=== PATIENT | female | born 1950 | race Caucasian/White ===

== ENCOUNTER 2016-08-31 16:51 | Emergency (ER) | payer MEDICARE ==
[2016-08-31 17:39] LABS: BASOPHILS 0.3 % (0-2); EOSINOPHILS 2.1 % (0-7); HEMATOCRIT 40.4 % (36.0-48.0); HEMOGLOBIN 13.5 g/dL (12-16); IMMATURE GRANULOCYTES 0.2 % (0-5); LYMPHOCYTES 22.4 % (15-50); MCHC 33.4 g/dL (31.0-37.0); MCV 92.9 fL (80.0-100.0); MEAN PLATELET VOLUME 9.4 fL (7.4-10.4); MONOCYTES 7.2 % (2-11); NEUTROPHILS 67.8 % (40-80); PLATELET COUNT 229 10x3/uL (130-400); RBC 4.35 10x6/uL (4.00-5.40); RDW 15.6 % (11.5-14.5); WBC 6.1 10x3/uL (4.8-10.8)
[2016-08-31 17:46] LABS: ALBUMIN 3.5 g/dL (3.4-5.0); ALKALINE PHOSPHATASE 70 U/L (46-116); ALT (SGPT) 16 U/L (10-68); CALC OSMOLALITY 287 mosm/kg (275-300); CALCIUM 8.4 mg/dL (8.5-10.1); CARBON DIOXIDE 28.3 mmol/L (21.0-32.0); CHLORIDE - SERUM 107 mmol/L (98-107); CREATININE - SERUM 0.7 mg/dL (0.6-1.3); GLUCOSE 94 mg/dL (74-106); POTASSIUM - SERUM 3.4 mmol/L (3.5-5.1); SODIUM 144 mmol/L (136-145); UREA NITROGEN 16 mg/dL (7-18); eGFR NON AFRICAN AMERICAN 89 mL/min (90-120)
[2016-08-31 17:49] LABS: UDS - AMPHET NEGATIVE QUAL (NEGATIVE); UDS - BARB NEGATIVE QUAL (NEGATIVE); UDS - BENZO NEGATIVE QUAL (NEGATIVE); UDS - COCAINE NEGATIVE QUAL (NEGATIVE); UDS - METH NEGATIVE QUAL (NEGATIVE); UDS - OPIATE NEGATIVE QUAL (NEGATIVE); UDS - PCP NEGATIVE QUAL (NEGATIVE); UDS - THC NEGATIVE QUAL (NEGATIVE)
[2016-08-31 18:09] LABS: APPEARANCE CLEAR (CLEAR); BILIRUBIN NEGATIVE (NEGATIVE); COLOR YELLOW (YELLOW); GLUCOSE NEGATIVE (NEGATIVE); KETONE NEGATIVE (NEGATIVE); LEUKOCYTE ESTERASE TRACE (NEGATIVE); NITRITE NEGATIVE (NEGATIVE); PROTEIN NEGATIVE (NEGATIVE); SPECIFIC GRAVITY 1.015 (1.005-1.020); UROBILINOGEN NORMAL (NORMAL)
[2016-08-31 18:11] LABS: BACTERIA FEW /hpf (NONE SEEN); EPITHELIAL CELLS OCC /hpf (0-5); RED CELLS - URINE 0-5 /hpf (0-5); WHITE CELLS - URINE 0-5 /hpf (0-5)
== END 2016-08-31 18:05 | disposition home or self-care (01) ==
LOC: D.ER 16:51
PROVIDERS: Physician Assistant Medical
DX: F43.21 Adjustment disorder with depressed mood (principal); R53.1 Weakness; F41.8 Other specified anxiety disorders; F17.200 Nicotine dependence, unspecified, uncomplicated

== ENCOUNTER 2016-10-05 18:08 | Inpatient (IN) | payer MEDICARE ==
[~2016-10-05] VITALS: Ht 152.4 cm; Wt 61.1 kg
[2016-10-05 20:18] VITALS: BP 187/89
[2016-10-05] MEDS ORDERED: LEVOTHYROXINE175 MCG PO (20:53)
[2016-10-05] MEDS ORDERED: KLONOPIN0.5 MG PO (20:53)
[2016-10-05] MEDS ORDERED: LISINOPRIL5 MG PO (20:56)
[2016-10-05] MEDS ORDERED: CELEXA10 MG PO (20:58)
--- NOTE | 2016-10-05 23:35 | NUR ---
Patient arrived via ambulance at 18;25 from [facility] ER, alert and oriented, admited for suicidal ideation, plan to take over dose of herion. Code status is full code, medications entered into system, physician aware, patient contracts for safety, oriented to unit, will continue to monitor.
[2016-10-06 00:36] VITALS: BP 190/98; BMI 21.0
[2016-10-06 06:41] LABS: BASOPHILS 0.2 % (0-2); EOSINOPHILS 2.9 % (0-7); HEMATOCRIT 41.2 % (36.0-48.0); HEMOGLOBIN 13.9 g/dL (12-16); IMMATURE GRANULOCYTES 0.2 % (0-5); LYMPHOCYTES 26.5 % (15-50); MCH 31.2 pg (26.0-34.0); MCHC 33.7 g/dL (31.0-37.0); MCV 92.6 fL (80.0-100.0); MEAN PLATELET VOLUME 9.1 fL (7.4-10.4); MONOCYTES 8.2 % (2-11); PLATELET COUNT 222 10x3/uL (130-400); RBC 4.45 10x6/uL (4.00-5.40); RDW 15.4 % (11.5-14.5); WBC 5.6 10x3/uL (4.8-10.8)
[2016-10-06 07:20] LABS: ALBUMIN 3.3 g/dL (3.4-5.0); ALKALINE PHOSPHATASE 54 U/L (46-116); ALT (SGPT) 16 U/L (10-68); BILIRUBIN - TOTAL 0.34 mg/dL (0.2-1.3); CALCIUM 9.1 mg/dL (8.5-10.1); CARBON DIOXIDE 32.3 mmol/L (21.0-32.0); CHLORIDE - SERUM 104 mmol/L (98-107); CHOLESTEROL, TOTAL 238 mg/dL (0-200); CREATININE - SERUM 0.7 mg/dL (0.6-1.3); HDL CHOLESTEROL 60 mg/dL (32-96); LDL CHOLESTEROL 159 mg/dL (0-100); LDL-HDL RATIO 2.7 ratio (1.5-3.5); POTASSIUM - SERUM 3.4 mmol/L (3.5-5.1); PROTEIN - SERUM 7.1 g/dL (6.4-8.2); SODIUM 143 mmol/L (136-145); THYROID STIMULATING HORMONE 19.76 uIU/mL (0.36-3.74); TRIGLYCERIDE 96 mg/dL (30-200); UREA NITROGEN 12 mg/dL (7-18); eGFR NON AFRICAN AMERICAN 88 mL/min (90-120)
[2016-10-06 07:21] LABS: CALC OSMOLALITY 282 mosm/kg (275-300); GLUCOSE 55 mg/dL (74-106)
[2016-10-06 08:00] VITALS: BP 141/82
--- NOTE | 2016-10-06 12:56 | NUR ---
B) PATIENT IS AWAKE AND ALERT, SHE IS ORIENTED X3, SHE AMBULATES INDEPENDENTLY, SHE HAS NOT MADE ANY S.I. TODAY, BUT SHE HAS SAID SHE HAS A LOT OF THINGS THAT ARE CAUSING HER TO BE DEPRESSED. I) PROVIDE PRESCRIBED MEDS. R) PATIENT IS COMPLIANT WITH MEDS AND UNIT MILIEU. P) CONTINUE POC.
[2016-10-06 14:05] VITALS: BMI 20.9
[2016-10-06 19:45] VITALS: BP 108/57
--- NOTE | 2016-10-07 03:25 | NUR ---
B) patient alert and oriented X 3, quiet and keeps to herself, watching TV, I) Administered scheduled medication, contracted for safety, R) Medication compliant, no S.I. this shift, P) Continue plan of care.
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
[2016-10-07 07:25] LABS: RAPID PLASMA REAGIN Non Reactive (Non Reactive)
[2016-10-07 08:18] LABS: FOLATE (FOLIC ACID) - SERUM 16.9 ng/mL (>3.0)
[2016-10-07 08:35] VITALS: BP 143/100
--- NOTE | 2016-10-07 10:37 | NUR ---
B) PATIENT IS AWAKE AND ALERT, SHE HAS NOT MENTIONED ANYTHING TODAY ABOUT LEAVING AND SHE SAYS SHE FEELS BETTER TODAY, BUT REALIZES SHE BETTER GET UP AND WALK AROUND MORE. SHE IS ORIENTED X3, SHE HAS NOT MADE ANY MENTION OF S.I. SHE IS SMILING AND JOKING WITH STAFF AND PEERS. PATIENT AMBULATES INDEPENDENTLY. I) PROVIDE PRESCRIBED MEDS. R) PATIENT IS COMPLIANT WITH MEDS, IVONNE BP IS ELEVATED TODAY. P) CONTINUE POC.
[2016-10-07 20:03] VITALS: BP 105/69
--- NOTE | 2016-10-08 01:49 | NUR ---
B) Patient alert and oriented, calm and cooperative with assessment and care, social with staff and peers, no S.I. I) administered scheduled medications, monitored for safety, contracted for safety R) Medication compliant, pleasant and friendly to staff and peers P) Continue Plan of care.
[2016-10-08 15:57] VITALS: BP 153/84
--- NOTE | 2016-10-08 18:19 | NUR ---
PT IS RECEIVED SITTING IN CHAIR NEAR NURSE STATION. PT IS ALERT AND ORIENTED X3. PT DENIES PAIN. PT DENIES SI AND CONTRACTS FOR SAFETY. PT ADMITS TO ANXIETY 4/10 DENIES DEPRESSION. PT IS PLEASANT AND SOCIAL WITH STAFF AND PEERS. PT IS COOPERATIVE WITH STAFF AND IS COMPLIANT WITH MED'S AND CARE. NO AGGRESSION NOTED. NO HALLUCINATIONS OR DELUSIONS ARE NOTED OR REPORTED. PT IS VERY HELPFUL AND FRIENDLY WITH OTHER PT'S. WILL CONTINUE TO MONITOR AND CONTINUE WITH PLAN OF CARE.
[2016-10-08 19:30] VITALS: BP 129/65
--- NOTE | 2016-10-08 20:20 | PN ---
PATIENT:JAYME DELAROSA MEDICAL RECORD: [id number] LOCATION:[facility] ADMISSION DATE: 10/05/16 PROGRESS NOTE DATE OF SERVICE: 10/07/2016 SUBJECTIVE: No new complaint noted. OBJECTIVE: The patient will be seen by Dr. Jeffers today. She is somewhat sleepy. Reports that she does not tolerate the Klonopin very well. On exam, mood is euthymic. Affect is, however, somewhat expansive. Speech is slightly pressured and tangential. Content of thought exhibits some paranoid ideation. Sensorium testing reveals a very poor concentration. ASSESSMENT: No change in diagnosis. PLAN: 1. Neuropsychological testing. 2. We will reduce dose of Klonopin. 3. Continue other meds and supportive therapy. TRANSINT:[id number] Voice Confirmation ID: [id number] DOCUMENT ID: [id number] PAUL MOSLEY III, MD at 2020 CC: [id number] DICTATION DATE: 10/07/16 1139 PLATEN PRESS FEEDER: 10/07/16 1858 ADM IN [place] [id number] [place] [address]
--- NOTE | 2016-10-09 03:36 | NUR ---
B) Patient ie alert and oriented, calm and helpful with other patients, social and friendly with staff and peers, I) Administered scheduled medications, contracted for safety , monitored for behaviors, R) Medication compliant, no S.I. this shift, P) Continue plan of care.
[2016-10-09 07:00] VITALS: BP 147/92
--- NOTE | 2016-10-09 14:17 | NUR ---
IS ORIENTED X 3.COMPLIANT WITH MEDS AND STAFF.ATTEMPTS TO HELP OTHER PATIENTS AT MEAL.SLEEPS MOST OF THE DAY EXCEPT WAKES FOR MEALS.DENIED PLAN OR THOUGHTS ABOUT KILLING SELF NOW.STATES "I JUST NEEDED TO GET SOME SLEEP".VOICES PLAN TO SELL HOME AND MOVE INTO A CONDO WHERE SHE WILL FEEL SAFER.WILL CONTINUE WITH PLAN OF CARE,MONITOR FOR SAFETY AND CHANGES.
[2016-10-09 19:31] VITALS: BP 156/75
--- NOTE | 2016-10-09 20:26 | NUR ---
RECEIVED IN DAYROOM. SITTING IN A RECLINER READING A BOOK. CALM AND COOPERATIVE WITH CARE AND ASSESSMENTS. DENIES THOUGHTS OF SELF HARM. ENCOURAGE TO EXPRESS NEEDS. CONTINUES TO SIT QUIETLY IN CHAIR. CONTINUE PLAN OF CARE
[2016-10-10 07:00] VITALS: BP 128/84
[2016-10-10 09:21] VITALS: BMI 21.0
--- NOTE | 2016-10-10 09:52 | PN ---
PATIENT:JAYME DELAROSA MEDICAL RECORD: [id number] LOCATION:[facility] ADMISSION DATE: 10/05/16 PROGRESS NOTE DATE OF SERVICE: 10/09/2016 SUBJECTIVE: No new complaint. OBJECTIVE: The patient continues to show some pressured speech. She exhibits moderate degree of confusion as well, on occasion require some redirection. On exam, mood is somewhat elevated. Affect is slightly expansive. Speech is highly circumstantial. Content of thought is negative for clear cut psychosis, although the patient does exhibit a fair degree of paranoid ideation. Sensorium shows no change. ASSESSMENT: No change in diagnosis. PLAN: 1. Continue current medications. 2. Continue supportive therapy. TRANSINT:[id number] Voice Confirmation ID: [id number] DOCUMENT ID: [id number] PAUL MOSLEY III, MD at 0952 CC: [id number] DICTATION DATE: 10/09/16 0619 INFORMATION TECHNOLOGY ASSISTANT: 10/09/16 0851 ADM IN [place] [id number] [place] [address]
--- NOTE | 2016-10-10 14:00 | NUR ---
AWAKE AND ORIENTED X 3. CALM AND COOPERATIVE WITH CARE AND ASSESSMENT. DENIES ANY SELF-HARM. SOCIAL WITH PEERS AND STAFF. TRIES TO HELP OTHERS. COMPLIANT WITH MEDICATIONS AND UNIT MILIEU. SAFETY PRECAUTIONS MAINTAINED. WILL CONTINUE PLAN OF CARE.
--- NOTE | 2016-10-10 19:44 | NUR ---
RECEIVED IN HALLWAY. COMING FROM DAYROOM TO BEDROOM. CALM AND COOPERATIVE WITH CARE AND ASSESSMENTS. DENIES THOUGHT OF SELF HARM. RESTING IN BED EYES OPEN AT THIS TIME. CONTINUE PLAN OF CARE
[2016-10-10 19:55] VITALS: BP 163/82
[2016-10-11 09:39] VITALS: BP 152/80
--- NOTE | 2016-10-11 11:09 | PN ---
PATIENT:JAYME DELAROSA MEDICAL RECORD: [id number] LOCATION:PAT [facility]112 ADMISSION DATE: 10/05/16 PROGRESS NOTE DATE OF SERVICE: 10/10/2016 SUBJECTIVE: The patient complains of continuing to be sleepy during the day. OBJECTIVE: The patient is pleasant on exam, mood is euthymic. Affect is rather shallow. Speech tends to be repetitive. Content of thought is negative for clear cut psychosis at the moment. Sensorium shows mild concentration and short term difficulties. ASSESSMENT: No change in diagnosis. PLAN: 1. Discontinue Klonopin. 2. Continue other medications. 3. Continue supportive therapy. TRANSINT:[id number] Voice Confirmation ID: [id number] DOCUMENT ID: [id number] PAUL MOSLEY III, MD at 1109 CC: [id number] DICTATION DATE: 10/10/16 1145 CUSTOMER EXPERIENCE PROFESSIONAL: 10/10/16 1723 ADM IN [place] [id number] [place] [id number]
--- NOTE | 2016-10-11 15:07 | NUR ---
PATIENT IS ALERT AND ORIENTED X 3. DENIES ANY NEEDS OR SI. SOCIAL WITH PEERS AND STAFF. PRESCRIBED MEDS ADMINISTERED. COMPLIANT WITH MEDS AND UNIT MILIEU. MAIONTAIN SAFETY PRECAUTIONS. CONTINUE PLAN OF CARE.
[2016-10-11 19:56] VITALS: BP 174/81
--- NOTE | 2016-10-11 19:57 | NUR ---
RECEIVED IN HALLWAY. SITTING WITH PEERS SOCIALIZING. CALM AND COOPERATIVE WITH CARE AND ASSESSMENTS. DENIES THOUGHTS OF SELF HARM. ENCOURAGE TO EXPRESS NEEDS. CONTINUES TO SOCIALIZE WITH PEERS. CONTINUE PLAN OF CARE
[2016-10-12 08:00] VITALS: BP 144/79
--- NOTE | 2016-10-12 09:00 | NUR ---
B) Received pt in dining room for b'fast, alert, oriented, jovial mood, appetite good. I) Meds admin per orders. Group therapy provided. R) Lori meds well, participated in group as requested, cooperative. P) Cont plan of care including meds and group activity.
--- NOTE | 2016-10-12 10:47 | NUR ---
Nutrition Follow Up: Chart reviewed. Pt is eating 75% meal avg on a regular diet. +BM 10/08/16. Meds and labs reviewed. Rec continue current diet. Pt continues at low nutritional risk. RD following.
--- NOTE | 2016-10-12 10:59 | PN ---
PATIENT:JAYME DELAROSA MEDICAL RECORD: [id number] LOCATION:[facility]112 ADMISSION DATE: 10/05/16 PROGRESS NOTE DATE OF SERVICE: 10/11/2016 SUBJECTIVE: No new complaint. OBJECTIVE: The patient remains somewhat disorganized in her speech. Mood is generally pleasant. Affect is somewhat shallow. Content of thought is negative for overt psychosis. Sensorium shows no change. ASSESSMENT: No change in diagnosis. PLAN: 1. Case management is working on placement at the moment. 2. We will continue all current medications. 3. Continue supportive therapy. TRANSINT:[id number] Voice Confirmation ID: [id number] DOCUMENT ID: [id number] PAUL MOSLEY III, MD at 1059 CC: [id number] DICTATION DATE: 10/11/16 1153 POLICY WRITER SALES: 10/11/16 1837 ADM IN [place] [id number] [place] [address]
[2016-10-12 19:47] VITALS: BP 135/77
--- NOTE | 2016-10-13 05:00 | NUR ---
B) Patient alert and oriented, pleasant and social with staff and peers, worried about her home and discharge plans I) Administered scheduled medications, redirected as needed, R) Medication compliant, friendly and helpful with peers, P) Continue plan of care.
[2016-10-13 10:00] VITALS: BP 118/76
--- NOTE | 2016-10-13 12:36 | NUR ---
B) PATIENT IS AWAKE AND ALERT, SHE AMBULATES INDEPENDENTLY, SHE IS ORIENTED X3, SHE HAS MADE SOME FAR OUT STATEMENTS ABOUT PEOPLE BREAKING INTO HER HOME AND HAVING SQUATTERS TRYING TO MOVE IN ON HER. PATIENT IS INTERACTING WITH STAFF AND PEERS, SHE IS JOKING AND HAVING A GOOD TIME IN GROUPS, SHE DENIES DEPRESSION AND S.I. I) PROVIDE PRESCRIBED MEDS. R) PATIENT IS COMPLIANT WITH MEDS AND UNIT MILIEU. P) CONTINUE POC.
--- NOTE | 2016-10-13 15:25 | NUR ---
PATIENT DID TAKE HER LITHIUM, BUT SHE IS NOT HAPPY, SHE SAYS "I CAN'T TAKE MEDICINE FOR BIPOLAR, A ONCE TOLD ME I WAS VERY SENSITIVE TO MEDS BECAUSE OF MY THYROID, HE ALSO SAID I COULD NEVER TAKE STREET DRUGS" SHE IS TEARFUL AND UPSET ABOUT THE NEW MEDS.
--- NOTE | 2016-10-14 02:59 | NUR ---
B) Patient is alert and oriented X 3, social and friendly to staff and peers, helpful, does not like taking depression medication, denies S.I., contracts for safety, I) Administered scheduled medications, monitored for safety. R) Medication compliant, worried about discharge planning, P) Continue plan of care.
--- NOTE | 2016-10-14 08:07 | NUR ---
B) PATIENT IS AWAKE AND ALERT, SHE IS AMBULATING INDEPENDENTLY. SHE IS CALM AND PLEASANT SHE HAS NOT MADE ANY STATEMENTS ABOUT PARANOIA OR DELUSIONS THIS AM. I) PROVIDE PRESCRIBED MEDS. R) PATIENT IS ORIENTED X3. SHE IS CONCERNED WITH THE LITHIUM, DID PROVIDE HER INFORMATION FROM THE PHARMACY ABOUT IT. P) CONTINUE POC.
[2016-10-14 08:45] VITALS: BP 146/86
--- NOTE | 2016-10-14 12:46 | PN ---
PATIENT:JAYME DELAROSA MEDICAL RECORD: [id number] LOCATION:[facility] ADMISSION DATE: 10/05/16 PROGRESS NOTE DATE OF SERVICE: 10/13/2016 SUBJECTIVE: The patient's case was discussed with staff. She has no new complaint. OBJECTIVE: The patient is delusional and very disorganized. She says that people are breaking into her house and that no one cares. She denies that she would seek to harm herself or others, but clearly is hypervigilant and paranoid. ASSESSMENT: No change in diagnoses. PLAN: The patient in my view has a mood component to her disorder and I am going to start her on lithium at a dose of 300 mg twice daily. Her long-term prognosis is guarded. TRANSINT:[id number] Voice Confirmation ID: [id number] DOCUMENT ID: [id number] AKI ODOM MD at 1246 CC: [id number] DICTATION DATE: 10/13/16 1303 CORN CHIP MAKER: 10/13/16 1848 ADM IN [facility] [address] [place] [address]
[2016-10-14 19:30] VITALS: BP 138/72
--- NOTE | 2016-10-15 03:10 | NUR ---
B) Patient alert and oriented X 3 , calm and cooperative, helpful with peers, social with staff and peers, I) Administered scheduled medications, contracted for safety, R) Medication compliant, friendly and pleasant, P) Continue plan of care.
[2016-10-15 08:42] VITALS: BP 174/85
--- NOTE | 2016-10-15 09:50 | PN ---
PATIENT:JAYME DELAROSA MEDICAL RECORD: [id number] LOCATION:PAT [facility]112 ADMISSION DATE: 10/05/16 PROGRESS NOTE DATE OF SERVICE: 10/14/2016 SUBJECTIVE: The patient's case was discussed with staff. She has no new complaint. OBJECTIVE: The patient denies intent to harm herself or others. She generally tolerates her medicines well. She has been started on lithium and does seem a little calmer today. ASSESSMENT: No change in diagnoses. PLAN: Supportive and educational interventions were made. The patient's long-term prognosis is guarded. TRANSINT:[id number] Voice Confirmation ID: [id number] DOCUMENT ID: [id number] AKI ODOM MD at 0950 CC: [id number] DICTATION DATE: 10/14/16 1317 ASBESTOS CEMENT SHEET SUPERVISOR: 10/14/16 1628 ADM IN [facility] [address] [place] [address]
--- NOTE | 2016-10-15 11:28 | NUR ---
B) PATIENT IS GOING AROUND HELPING EVERYONE AND TRYING TO FIX EVERYTHING AND MAKE THE PATIENTS HAPPY. SHE IS TALKING WITH ANOTHER FEMALE PATIENT AND SHE IS GOING INTO DETAIL ABOUT PEOPLE BREAKING IN ON HER. MAY NEED TO SEPARATE THE TWO IF THEY BEGIN TALKING NEGATIVELY. WILL MONITOR. PATIENT IS VERY INDEPENDENT, AMBULATES WELL. I) PROVIDE PRESCRIBED MEDS AND UNIT MILIEU. R) PATIENT IS COMPLIANT WITH HER MEDS, DID HEAR HER TALKING TO THE FIELD COUNSEL ABOUT HOW A DRBridger YEARS AGO TRIED HER ON BIPOLAR MEDICINE. SHE SAID "YOU KNOW BACK THEN THEY WERE TRYING TO SAY EVERYONE WAS BIPOLAR" SHE DID TELL THE FIELD COUNSEL THAT SHE WAS NOT ABLE TO TAKE THE DEPAKOTE PRESCRIBED IN THE PAST, HOW IT MADE HER VERY ILL. P) CONTINUE POC.
[2016-10-15 19:30] VITALS: BP 177/77
--- NOTE | 2016-10-16 05:05 | NUR ---
B] PATIENT ALERT AND ORIENTED, SOCIAL WITH STAFF AND PEERS, NO S.I. THIS SHIFT, CALM AND COOPERATIVE, I] ADMINISTERED SCHEDULED MEDICATIONS, MONITORED FOR SAFETY, R] MEDICATION COMPLIANT, FRIENDLY AND PLEASANT, P] CONTINUE PLAN OF CARE.
[2016-10-16 07:00] VITALS: BP 172/78
[2016-10-16 08:00] VITALS: Ht 152.4 cm; Wt 61.1 kg
--- NOTE | 2016-10-16 12:48 | PN ---
PATIENT:JAYME DELAROSA MEDICAL RECORD: [id number] LOCATION:[facility] ADMISSION DATE: 10/05/16 PROGRESS NOTE DATE OF SERVICE: 10/15/2016 SUBJECTIVE: The patient's case was discussed with staff. She has no new complaint. OBJECTIVE: The patient has a depressed mood, but no thoughts of harming herself or others. She does tolerate her medications well. Eye contact is poor. Concentration is poor. ASSESSMENT: No change in diagnoses. PLAN: Current medicines and therapies have been reviewed and will be maintained. I am going to order a lithium level on her. I do not anticipate it would be above therapeutic range and I am certainly pleased that it seems to have shown some clinical benefit. Her long-term prognosis is guarded. TRANSINT:[id number] Voice Confirmation ID: [id number] DOCUMENT ID: [id number] AKI ODOM MD at 1248 CC: [id number] DICTATION DATE: 10/15/16 1008 DRUMS TEACHER: 10/15/16 1408 ADM IN [place] [id number] [place] [address]
--- NOTE | 2016-10-16 17:22 | NUR ---
RECEIVED THIS AM AMBULATORY IN [facility].IS VERY HELPFUL WITH OTHER PATIENTS.VERY FRIENDLY WITH NURSE BUT THEN BEGINS TO CRY.STATES" I HAVE BEAT CANCER 3 TIMES AND WHEN IT USUALLY COMES BACK IS IN 17YEARS."VOICES WORRY OF NEVER GETTING OUT OF HERE AND LIVING TO BE VERY OLD AND SICK.ATTEMPTED TO COMFORT HER AND ENCOURAGED HER TO TALK WITH NURSE ANYTIME SHE WANTS TOO.WILL CONTINUE WITH PLAN OF CARE,MONITOR FOR CHANGES AND SAFETY.IS COMPLIANT WITH MEDS.DENIES PLANS TO HARM SELF BUT DOES STATE SHE HAS ALREADY TALKED TO HER DOCTOR ABOUT STATES WHERE THERE IS ASSISTED SUICIDE.
[2016-10-16 19:30] VITALS: BP 171/73
--- NOTE | 2016-10-16 23:06 | NUR ---
B) States she is from [facility] and most of her medical records are there. States she has allergies to things and only knows she is allergic to Depakote, claims it caused her to have a seizure when it was given to her. Was seeing in , but he retired, states she now sees . This is not listed on her allergy list. Upset and crying, claims she does not need to take medications. Has no understanding of her illness, believes taking medication is causing her illness, not that taking the medications will help alleviate or lessen her symptoms. Claims she has blurred vision, "I can't even read the newspaper", fine hand tremors, stuttering "I can't form words", (even though she speaks quite clearly), increased anxiety with high blood pressure, and crying episodes all day long. Claims these symptoms only started after she started taking "these medications, especially Anton". I) Administer medications as ordered, offer 1:1 to express feelings, educate about her current medications, redirect as needed. R) Compliant with medications after prompting, oriented x 3 to person, place and time but not to situation, in denial of illness, restless, anxious, tearful, frustrated. P) Continue to monitor per plan of care.
[2016-10-17 07:00] VITALS: BP 237/112
--- NOTE | 2016-10-17 08:00 | NUR ---
AWAKE AND ALERT, LYING IN THE FLOOR IN HER ROOM, CRYING. SAYS "I DO NOT DESERVE TO SLEEP IN A BED. I WISH I HAD KILLED MYSELF." B/P IS VERY HIGH. B/P= 237/102. MEDICATIONS GIVEN FIRST, AND CALMED HER DOWN. SOCIAL AND HELPFUL WITH STAFF AND PEERS. ASSESSMENT COMPLETED PER FLOW SHEET. ADMINISTER MEDS. COMPLIANT WITH TAKING MEDS. WILL CONTINUE PLAN OF CARE.
--- NOTE | 2016-10-17 10:22 | PN ---
PATIENT:JAYME DELAROSA MEDICAL RECORD: [id number] LOCATION:PAT [facility]112 ADMISSION DATE: 10/05/16 PROGRESS NOTE DATE OF SERVICE: 10/12/2016 SUBJECTIVE: The patient does not have a new complaint. OBJECTIVE: Staff reports the patient is exhibiting very expansive affect. She tends to be quite intrusive with other patients from time to time. She exhibits paranoid ideation toward certain staff members. She gives a rather disjointed history and tends to change her story depending upon whom she is or with whom she is talking. The patient was tested by Dr. Mariee yesterday. Results are currently pending. On exam, mood is somewhat elevated. Affect is indeed rather expansive. Speech is slightly pressured. Content of thought does not show overt psychosis at the moment. Sensorium shows no change. ASSESSMENT: No change in diagnosis. PLAN: 1. We will add Abilify 10 mg at bedtime. 2. Maintain other medications. 3. Continue supportive therapy. SECONDARY DIAGNOSIS: Rule out psychosis, not otherwise specified. TRANSINT:[id number] Voice Confirmation ID: [id number] DOCUMENT ID: [id number] PAUL MOSLEY III, MD at 1022 CC: [id number] DICTATION DATE: 10/12/16 1150 PATHOLOGY SUPERVISOR: 10/12/16 1717 ADM IN [place] [id number] [place] [address]
--- NOTE | 2016-10-17 11:08 | PN ---
PATIENT:JAYME DELAROSA MEDICAL RECORD: [id number] LOCATION:PAT [facility]112 ADMISSION DATE: 10/05/16 PROGRESS NOTE DATE OF SERVICE: 10/16/2016 SUBJECTIVE: The patient's case was discussed with staff. She has no new complaint. OBJECTIVE: The patient is in good behavioral control. She has limited insight about her condition. ASSESSMENT: No change in diagnoses. PLAN: The patient has a subtherapeutic lithium level of 0.31 mEq. I am going to increase the dose of the lithium, which she has not only tolerated well, but it has resulted in significant behavioral improvement. TRANSINT:[id number] Voice Confirmation ID: [id number] DOCUMENT ID: [id number] AKI ODOM MD at 1108 CC: [id number] DICTATION DATE: 10/16/16 1245 CHRISTMAS BELL RINGER: 10/16/162015 ADM IN [facility] [address] [place] [address]
[2016-10-17 12:09] VITALS: BP 163/78
[2016-10-17 19:54] VITALS: BP 159/69
--- NOTE | 2016-10-17 20:49 | NUR ---
RECEIVED IN DAYROOM. SITTING IN CHAIR WITH STAFF AND PEERS AT HER SIDE. SOCIALIZING AT TIMES. CALM AND COOPERATIVE WITH CARE AND ASSESSMENTS. ENCOURAGE TO EXPRESS NEEDS. WALKING ABOUT IN HALLWAY AT NURSES STATION SOCILZING WITH STAFF AND PEERS AT THIS TIME. CONTINUE PLAN OF CARE
--- NOTE | 2016-10-18 04:22 | PN ---
PATIENT:JAYME DELAROSA MEDICAL RECORD: [id number] LOCATION:PAT [facility]112 ADMISSION DATE: 10/05/16 PROGRESS NOTE DATE OF SERVICE: 10/17/2016 SUBJECTIVE: The patient states that she is nervous. OBJECTIVE: The patient has had numerous complaints that she has voiced generally on matters such as medications and so forth. The patient has been reluctant to take lithium, claiming that she is having side effects, even though her dosage has been subtherapeutic. On exam, mood is somewhat irritable. Affect is brittle. Speech is somewhat tangential. Content of thought focuses on somatic concerns. Sensorium shows no change. ASSESSMENT: No change in diagnosis. PLAN: 1. Strongly encourage the patient to maintain her compliance with medication. 2. Continue supportive therapy. TRANSINT:[id number] Voice Confirmation ID: [id number] DOCUMENT ID: [id number] PAUL MOSLEY III, MD at 0422 CC: [id number] DICTATION DATE: 10/17/16 1212 LINE HAUL TRUCK DRIVER: 10/17/16 1304 ADM IN [place] [id number] [place] [id number]
[2016-10-18 08:00] VITALS: BP 146/90
--- NOTE | 2016-10-18 11:00 | NUR ---
AWAKE AND ALERT THIS AM. CALM AND COOPERATIVE WITH ASSESSMENT AND CARE. DENIES SUICIDAL IDEATIONS TODAY. ADMINISTER PRESCRIBED MEDICATIONS. COMPLIANT WITH TAKING MEDS AND UNIT MILIEU. WILL CONTINUE TO MONITOR, PATIENT IS SET TO DISCHARGE TODAY. ALL DISCHARGE PAPERWORK REVIEWED WITH PATIENT AND FAXED TO PCP, DR RAHEL SALAZAR OFFICE. ALL BELONGINGS BAGGED AND ACCOUNTED FOR.
[2016-10-18] MEDS ORDERED: ZESTRIL40 MG PO (12:32)
[2016-10-18] MEDS ORDERED: LIPITOR10 MG PO (12:32)
[2016-10-18] MEDS ORDERED: ABILIFY10 MG PO (12:33)
[2016-10-18] MEDS ORDERED: LITHIUM CARBON150 MG PO (12:33)
[2016-10-18] MEDS ORDERED: CELEXA20 MG PO (12:33)
[2016-10-18] MEDS ORDERED: SYNTHROID200 MC1 PO (12:33)
[2016-10-18] MEDS ORDERED: VITAMIN D5000 UNIT PO (12:34)
--- NOTE | 2016-10-18 14:56 | NUR ---
JAVIER CALLED WITH JAVIER ROWLEY COPY IN CHART.
--- NOTE | 2016-10-19 09:17 | DS ---
PATIENT:JAYME DELAROSA :48 MEDICAL RECORD: [id number] DISCHARGE SUMMARY ADMISSION DATE: 10/05/16 DISCHARGE DATE: 10/18/16 DATE OF ADMISSION: 10/05/2016 DATE OF DISCHARGE: 10/17/2016 HISTORY OF PRESENT ILLNESS: A 66-year-old white female, who was initially assessed at [facility] and sent here because of suicidal statements. The patient has a previous history of mood disorder. She had been under a number of personal stressors and had difficulty with family as well. Because of suicidality, she was transferred to [facility]. For further details, please see previously dictated history. COURSE IN THE HOSPITAL: The patient was seen in consultation by Dr. Luna. He noted the presence of hypertension, hypothyroidism, hyperlipidemia and glaucoma. Following admission, the patient was started on routine doses of Synthroid, dosage was adjusted upward to 200 mcg daily based on her laboratory findings. She was also placed on lisinopril 40 mg daily, which again represented an increase, Lipitor 10 mg daily was also added. From a psychiatric standpoint, the patient was initially treated very conservatively. It was elected during the course of the hospitalization to begin Abilify 10 mg h.s. as an adjunctive treatment for her mood swings, Celexa 20 mg daily and lithium 300 mg b.i.d. were also used. Over the course of the hospitalization, the patient did show some lability of affect and attention seeking behavior. However, by the time of discharge, there was no evidence of suicidality. Arrangement was made for followup through the transitions program at [facility] on an outpatient basis and she will also follow up through her primary care physician. FINAL DIAGNOSES: AXIS I: Bipolar type 2 -- depressed phase. AXIS II: Cluster B traits. AXIS III: Hypothyroidism, hypertension, hypercholesterolemia. AXIS IV: Moderate. AXIS V: 40. PLAN: 1. The patient is discharged on current medication. 2. Follow up through primary care and [facility] outpatient. TRANSINT:[id number] Voice Confirmation ID: [id number] DOCUMENT ID: [id number] PAUL MOSLEY III, MD at 0917 CC: [id number] DICTATION DATE: 10/18/16 1243 MANAGER ESTATE: 10/18/162230 DIS IN 10/18/16 [facility] [address] [place] [address]
== END 2016-10-18 14:57 | disposition home or self-care (01) | DRG 885 ==
LOC: D.PSYCH 18:08
PROVIDERS: ADMIT Psychiatry & Neurology Psychiatry
DX: F31.30 Bipolar disorder, current episode depressed, mild or moderate severity, unspecified (principal); F41.9 Anxiety disorder, unspecified; I10 Essential (primary) hypertension; E03.9 Hypothyroidism, unspecified; H40.9 Unspecified glaucoma; E55.9 Vitamin D deficiency, unspecified; E78.00 Pure hypercholesterolemia, unspecified

== ENCOUNTER 2019-07-23 09:12 | Emergency (ER) | payer OTHER ==
[~2019-07-23] VITALS: Ht 167.6 cm; Wt 63.6 kg
[~2019-07-23 09:12] MED LIST: ABILIFY10 MG PO; CELEXA10 MG PO; CELEXA20 MG PO; KLONOPIN0.5 MG PO; LEVOTHYROXINE175 MCG PO; LIPITOR10 MG PO; LISINOPRIL5 MG PO; LITHIUM CARBON150 MG PO; SYNTHROID200 MC1 PO; VITAMIN D5000 UNIT PO; ZESTRIL40 MG PO
[2019-07-23 09:15] VITALS: Ht 167.6 cm; Wt 63.6 kg
[2019-07-23 09:53] LABS: BASOPHILS 0.3 % (0-2); EOSINOPHILS 3.2 % (0-7); HEMATOCRIT 40.4 % (36.0-48.0); HEMOGLOBIN 13.4 g/dL (12-16); IMMATURE GRANULOCYTES 0.2 % (0-5); LYMPHOCYTES 17.9 % (15-50); MCH 30.8 pg (26.0-34.0); MCHC 33.2 g/dL (31.0-37.0); MCV 92.9 fL (80.0-100.0); MEAN PLATELET VOLUME 9.6 fL (7.4-10.4); MONOCYTES 4.3 % (2-11); NEUTROPHILS 74.1 % (40-80); PLATELET COUNT 208 10x3/uL (130-400); RBC 4.35 10x6/uL (4.00-5.40); RDW 13.6 % (11.5-14.5); WBC 6.6 10x3/uL (4.8-10.8)
[2019-07-23 09:57] LABS: CALC OSMOLALITY 279 mosm/kg (275-300); CALCIUM 8.7 mg/dL (8.5-10.1); CARBON DIOXIDE 27.6 mmol/L (21.0-32.0); CHLORIDE - SERUM 104 mmol/L (98-107); POTASSIUM - SERUM 3.1 mmol/L (3.5-5.1); SODIUM 140 mmol/L (136-145); UREA NITROGEN 14 mg/dL (7-18); eGFR NON AFRICAN AMERICAN 58 mL/min (90-120)
[2019-07-23 09:58] LABS: GLUCOSE 106 mg/dL (74-106)
[2019-07-23 10:00] LABS: PROTIME 13.2 SECONDS (11.6-15.0)
[2019-07-23 10:12] VITALS: BP 99/54
[2019-07-23 10:26] LABS: ALBUMIN 3.7 g/dL (3.4-5.0); ALKALINE PHOSPHATASE 51 U/L (30-120); ALT (SGPT) 20 U/L (10-68); BILIRUBIN - TOTAL 0.47 mg/dL (0.2-1.3); CKMB 1.4 U/L (0.0-3.6); CREATINE KINASE 60 UL (21-215); MAGNESIUM - SERUM 1.7 mg/dL (1.8-2.4); PROTEIN - SERUM 7.5 g/dL (6.4-8.2)
[2019-07-23 10:27] LABS: TROPONIN-I < 0.017 ng/mL (0.000-0.060)
== END 2019-07-23 11:01 | disposition left against medical advice (07) ==
LOC: D.ER 09:12
PROVIDERS: Family Medicine
DX: R55 Syncope and collapse (principal); I10 Essential (primary) hypertension; E07.9 Disorder of thyroid, unspecified; F17.200 Nicotine dependence, unspecified, uncomplicated; Z53.29 Procedure and treatment not carried out because of patient's decision for other reasons